=== PATIENT | female | born 1990 | race Caucasian/White ===

== ENCOUNTER 2021-04-10 19:19 | Emergency (ER) | payer OTHER, SELFPAY ==
--- NOTE | ~2021-04-10 | XR_ITS ---
XR ankle LT min 3V 04/10/2021 19:37 INDICATION: Left ankle pain PROCEDURE: 4 views left ankle COMPARISON: No prior studies for comparison. FINDINGS: Fracture, dislocation or subluxation is not identified. The soft tissues appear within norm al limits. No foreign bodies are identified. IMPRESSION: 1: NO ACUTE BONE OR JOINT ABNORMALITY IDENTIFIED. Reviewed, dictated and finalized at location A.
[2021-04-10 19:27] VITALS: BP 141/74; PULSE 82; RESP 14; TEMP 37.1; O2SAT 99
--- NOTE | 2021-04-10 19:37 | ED.LOWEXIN ---
HPI - Extremity Injury (Lower) General Chief Complaint: Extremity Injury, Lower Stated Complaint: Possible injury left Ankle Time Seen by Provider: 04/10/21 19:37 Source: patient and RN notes reviewed Mode of arrival: ambulatory Limitations: no limitations History of Present Illness HPI Narrative: Patient presents today complaint of an injury to her left ankle. She slipped on some ice in her garage yesterday and fell. Reports some tingling in her calf area as well as pain surrounding the ankle. Currently rates her pain 5/10 and reports the pain is intermittent, but increases with weightbearing and movement. She has been taking ibuprofen with some mild relief. MD complaint: ankle injury Related Data Home Medications Medication Instructions Recorded Confirmed escitalopram oxalate 20 mg PO DAILY 04/10/21 04/10/21 Allergies Allergy/AdvReac Type Severity Reaction Status Date / Time ammonia Allergy Unknown Rash Verified 04/10/21 19:34 chloride Allergy Unknown Rash Verified 04/10/21 19:34 Review of Systems Review of Systems: Narrative: CONSTITUTIONAL: Denies body aches, fever, chills, or sweats. EYES: Denies visual changes, redness, or discharge. ENT: Denies rhinorrhea, congestion, sore throat, or otalgia. CARDIOVASCULAR: Denies chest pain, palpitations, or edema. RESPIRATORY: Denies cough or dyspnea. GASTROINTESTINAL: Denies abdominal pain, nausea, vomiting, or diarrhea. GENITOURINARY: Denies dysuria or hematuria. SKIN: Denies rash, itching, or wounds. MUSCULOSKELETAL: Denies back pain, or myalgia.+ Left ankle injury NEUROLOGIC: Denies headache, numbness, or weakness. + Tingling in the left lower leg PSYCH: Denies depression or anxiety. [facility] Past Medical History Medical History Acid reflux Anxiety Surgical History Surgical History Bern teeth removed Family History Family History Mother Hypertension Grandparent Family history of lymphoma Social History Social History Smoking status: Never smoker Second hand tobacco smoke exposure: No Alcohol intake: current Comments At time of signature, I have reviewed and agree with nursing past medical, surgical, social and family history unless otherwise noted. Please see nursing chart for further information. There is no relevant family history pertinent to the presenting complaint Exam Narrative: Exam Narrative: GENERAL: Well-appearing, well-nourished, and in no acute distress. HEAD: Normocephalic, atraumatic. EYES: EOMI. No redness or drainage. Conjunctivae normal. ENT: Mucous membranes pink and moist. NECK: Normal AROM. CHEST: No respiratory distress. EXTREMITIES: Left ankle: Moderate edema laterally and medially with tenderness to same. Distal sensation intact. Capillary refill normal. Pedal pulse normal. Full active range of motion with increased pain. Patient also has some tenderness just above the Achilles tendon. SKIN: Warm, dry, no rash. Capillary refill normal. Normal skin turgor. NEURO: No focal deficits. Alert and oriented x3. Gait steady. PSYCH: Normal affect. No signs of depression or anxiety. Course Vital Signs Vital signs: Vital Signs Temperature 98.8 F 04/10/21 19:27 Pulse Rate 82 04/10/21 19:27 Respiratory Rate 14 04/10/21 19:27 Blood Pressure 141/74 H 04/10/21 19:27 Pulse Oximetry 99 04/10/21 19:27 Temperature 98.8 F 04/10/21 19:27 Pulse Rate 82 04/10/21 19:27 Respiratory Rate 14 04/10/21 19:27 Blood Pressure 141/74 H 04/10/21 19:27 Pulse Oximetry 99 04/10/21 19:27 Reviewed. Pt has been instructed to follow up with her PCP regarding her elevated blood pressure today. MDM - Extremity Injury (Lower) Differential Diagnosis Differential diagno
== END 2021-04-10 20:15 | disposition home or self-care (01) ==
PROVIDERS: Emergency Provider Nurse Practitioner; PCP Family Medicine
DX: S93.401A Sprain of unspecified ligament of right ankle, initial encounter (principal); W00.0XXA Fall on same level due to ice and snow, initial encounter; F41.9 Anxiety disorder, unspecified; K21.9 Gastro-esophageal reflux disease without esophagitis
CPT/HCPCS: 73610; 99213; G0463